=== PATIENT | female | born 1955 | race Caucasian/White ===

== ENCOUNTER 2020-10-28 14:03 | Outpatient (CLI) | payer MEDICARE, MEDICAID, SELFPAY ==
--- NOTE | 2020-10-28 14:11 | MM_ITS ---
WS: [id number] BILATERAL SCREENING DIGITAL MAMMOGRAM WITH CAD HISTORY: SCREENING COMPARISON: 09/21/2016 Bilateral CC and MLO views submitted. Computer aided detection analyzed. Breast composition: There are scattered areas of fibroglandular density. No suspicious masses, microc alcifications or architectural distortion. Benign calcifications RIGHT breast. MM/[place] [id number] IMPRESSION: BI-RADS: 2-Benign FOLLOW UP: 1 Year Follow-up
== END 2020-10-28 14:04 | disposition home or self-care (01) ==
LOC: RADSHAW 14:10
PROVIDERS: PCP Registered Nurse; Visit Provider Registered Nurse
DX: Z12.31 Encounter for screening mammogram for malignant neoplasm of breast (principal)
CPT/HCPCS: 77067

== ENCOUNTER → 2021-10-25 11:09 | Outpatient (BNVA) | payer MEDICARE, MEDICAID, SELFPAY | PROVIDERS: PCP Registered Nurse; Visit Provider Orthopaedic Surgery | DX: S63.501A Unspecified sprain of right wrist, initial encounter (principal); W01.0XXA Fall on same level from slipping, tripping and stumbling without subsequent striking against object, initial encounter; Z46.89 Encounter for fitting and adjustment of other specified devices; S63.591D Other specified sprain of right wrist, subsequent encounter; X58.XXXD Exposure to other specified factors, subsequent encounter | CPT/HCPCS: 73110; 97760; 99202; L3809 ==

== ENCOUNTER 2021-10-25 15:14 | Outpatient (CLI) | payer MEDICARE, MEDICAID, SELFPAY | END 2021-10-25 15:15 | disposition home or self-care (01) | LOC: SPT 15:15 | PROVIDERS: PCP Registered Nurse; Visit Provider Orthopaedic Surgery | DX: Z46.89 Encounter for fitting and adjustment of other specified devices (principal); S63.591D Other specified sprain of right wrist, subsequent encounter; X58.XXXD Exposure to other specified factors, subsequent encounter | CPT/HCPCS: 97760; L3809 ==

== ENCOUNTER 2021-11-24 12:53 | Outpatient (CLI) | payer MEDICARE, MEDICAID, SELFPAY ==
--- NOTE | 2021-11-24 12:59 | MM_ITS ---
WS: [id number] BILATERAL 3D TOMOSYNTHESIS DIGITAL SCREENING MAMMOGRAPHY WITH CAD CLINICAL INFORMATION: SCREENING HISTORY: Screening mammogram. No current complaints. COMPARISON: October 28, 2020 TECHNIQUE: Bilateral CC and MLO views. FINDINGS: Scattered fibroglandular densities bilaterally. Punctate and lucent centered calcifications. No suspi cious focal mass, asymmetry, calcifications, or architectural distortion. No evidence of malignancy. MM/[place] [id number] IMPRESSION: BI-RADS: 2-Benign FOLLOW UP: 1 Year Follow-up Recommend return to annual screening mammography.
== END 2021-11-24 12:54 | disposition home or self-care (01) ==
PROVIDERS: PCP Registered Nurse; Visit Provider Family Medicine
DX: Z12.31 Encounter for screening mammogram for malignant neoplasm of breast (principal)
CPT/HCPCS: 77063; 77067

== ENCOUNTER 2023-03-23 11:54 | Outpatient (CLI) | payer MEDICARE, MEDICAID, SELFPAY ==
--- NOTE | 2023-03-23 11:58 | MM_ITS ---
WS: [id number] BILATERAL 3D TOMOSYNTHESIS DIGITAL SCREENING MAMMOGRAPHY WITH CAD CLINICAL INFORMATION: SCREENING HISTORY: Screening mammogram. No current complaints. COMPARISON: 2021 TECHNIQUE: Bilateral CC and MLO views. FINDINGS: Scattered fibroglandular densities bilaterally. No suspicious focal mass, asymmetry, calcifications, or architectural distortion. No evidence of malignancy. Lucent centered calcification RIGHT breast. IMPRESSION: MM/[place] [id number] BI-RADS: 2-Benign FOLLOW UP: 1 Year Follow-up Recommend return to annual screening mammography.
== END 2023-03-23 11:55 | disposition home or self-care (01) ==
PROVIDERS: PCP Registered Nurse; Visit Provider Registered Nurse
DX: Z12.31 Encounter for screening mammogram for malignant neoplasm of breast (principal)
CPT/HCPCS: 77063; 77067

== ENCOUNTER 2023-08-23 17:35 | Emergency (ER) | payer MEDICARE, MEDICAID, SELFPAY ==
[2023-08-23 17:39] VITALS: BP 132/71; PULSE 72; RESP 16; TEMP 36.9; O2SAT 98; BMI 25.8
--- NOTE | 2023-08-23 17:47 | W.ED.GENADLT ---
HPI - General Adult General: Chief complaint: General Medical Stated complaint: knot on head, headache Time Seen by Provider: 08/23/23 17:45 History of Present Illness: 68-year-old female comes in today with injury to the central frontal scalp. Patient reports about 1 week ago she hit her head against a piece of furniture that they were moving. Since then patient had tenderness in her scalp. Today she had worsening pain and a mild headache. Patient appears nontoxic. No focal neural deficits are noted. Patient denies any chronic medical problems except hypothyroidism. Associated symptoms: Reports headache(s) Review of Systems General: Reports: 10 or more systems reviewed and unremarkable except in HPI and below Neuro: Reports: headache(s) PFSH ED PFSH: Social History Smoking and tobacco/nicotine status: never used tobacco/nicotine Physical Exam Const: COMMON NORMALS: alert HENMT: COMMON NORMALS: normocephalic and atraumatic HEAD & SCALP: normocephalic and atraumatic Neck/C-Spine: COMMON NORMALS: full ROM Resp: COMMON NORMALS: normal respiratory effort Cardio: COMMON NORMALS: regular rate RATE: regular rate Back/Pelvis: COMMON NORMALS: thoracic and lumbar spine normal to inspection Extremity: COMMON NORMALS: normal to inspection Neuro: SENSORIUM/ORIENTATION: Yes alert Skin: COMMON NORMALS: turgor normal GENERAL SKIN EXAM: turgor normal Course Vital Signs: Vital signs: Vital Signs Temperature 98.4 F 08/23/23 17:39 Pulse Rate 72 08/23/23 17:39 Respiratory Rate 16 08/23/23 17:39 Blood Pressure 132/71 08/23/23 17:39 Pulse Oximetry 98 08/23/23 17:39 Oxygen Delivery Me thod Room Air, Nasal C annula 08/23/23 17:39 MDM - General Adult Medical Decision Making 68-year-old female comes in today for complaints of headache status post head injury. On exam patient appears nontoxic. Patient does have a small tender area to her anterior frontal scalp. No crepitus or depression is noted. Differential diagnosis includes but not limited to skull fracture, intracranial bleeding, contusion, concussion syndrome. CT of the head was unremarkable. Reviewed exam with patient believe that she most likely has a tender area secondary to a contusion. Patient reported understanding of care plan need for follow-up or return to the ER. Lab Data Radiology Impressions Head CT 08/23/23 17:54 IMPRESSION: No acute intracranial abnormality. All radiology interpretation(s) finalized by discharge Discharge Plan Discharge Patient Disposition: Home Clinical Impression: Head injury Qualifiers: Encounter type: initial encounter Qualified Code(s): S09.90XA - Unspecified injury of head, initial encounter Condition: Stable Prescriptions: No Action levothyroxine 88 mcg capsule 88 mcg PO DAILY (DME) thumb spica splint See Rx Instructions .Route .MEDSUPPLY Qty: 1 0RF Rx Instructions: As directed Discharge Orders: Discharge ED (Routine); Ordered 08/23/23 Ordered By: Eric Steiner Referrals: Karissa Singletary FNP [Primary Care Provider] - Discharge Diet: Usual diet Discharge Activity: Increase activity as tolerated Patient Instructions: Head Injury (ED) Activity Restrictions/Additional Instructions: Home and rest. Use acetaminophen as needed for pain. Use ice packs for further pain relief. Follow-up with primary care for further instruction. Coding Level of Care Code ED Head [employer] for [employer]
--- NOTE | 2023-08-23 17:54 | CTR_ITS ---
PROCEDURE INFORMATION: Exam: CT Head Without Contrast Exam date and time: 08/23/2023 6:00 PM Age: 68 years old Clinical indication: Injury or trauma; Fall; Blunt trauma (contusions or hematomas); Additional info: Head injury x1wk, persistent headache, no prior image TECHNIQUE: Imaging protocol: Computed tomography of the head without contrast. Radiation optimization: All CT scans at this facility use at least one of these dose optimization techniques: automated exposure control; mA and/or kV adjustment per patient size (includes targeted exams where dose is matched to clinical indication); or iterative reconstruction. COMPARISON: No relevant prior studies available. RADIATION DOSE METRICS: Total DLP (mGy-cm): 1158 FINDINGS: Brain: Mild cortical volume loss. Mild hypodensities in supratentorial periventricular and subcortical white matter, consistent with microangiopathy. No intracranial hemorrhage. Cerebral ventricles: No ventriculomegaly. Paranasal sinuses: Mucosal thickening in the left sphenoid sinus. The other sinuses are clear. No air-fluid level. Mastoid air cells: Visualized mastoid air cells are well aerated. Bones/joints: Hyperostosis frontalis. No fracture. Soft tissues: Unremarkable. Vasculature: No hyperdense artery. CT/CT head wo con* [id number] IMPRESSION: No acute intracranial abnormality.
--- NOTE | 2023-08-23 18:52 | PC.NURSE ---
pt left before she could be given discharge paperwork.
== END 2023-08-23 18:52 | disposition home or self-care (01) ==
PROVIDERS: Emergency Provider Nurse Practitioner Family; PCP Registered Nurse
DX: S09.90XA Unspecified injury of head, initial encounter (principal); W22.8XXA Striking against or struck by other objects, initial encounter
CPT/HCPCS: 70450; 99284

== ENCOUNTER 2024-03-26 09:54 | Outpatient (CLI) | payer MEDICARE, MEDICAID, SELFPAY ==
--- NOTE | 2024-03-26 09:57 | MM_ITS ---
WS: [id number] SCREENING DIGITAL TOMOSYNTHESIS MAMMOGRAM WITH CAD HISTORY: SCREENING COMPARISON: 03/23/2023, 11/24/2021, 10/28/2020 Bilateral CC and MLO with tomosynthesis views submitted. Synthetic mammography reviewed. Computer aid ed detection analyzed. Breast composition: There are scattered areas of fibroglandular density. No suspicious masses, microc alcifications or architectural distortion. Benign calcification 9:00 RIGHT breast. MM/MM scr BI tomosynthesis [id number] IMPRESSION: BI-RADS: 2 - Benign. FOLLOW UP: 1 Year Follow-up
== END 2024-03-26 09:55 | disposition home or self-care (01) ==
LOC: RAD 09:54
PROVIDERS: PCP Family Medicine; Visit Provider Family Medicine
DX: Z12.31 Encounter for screening mammogram for malignant neoplasm of breast (principal); R92.323 Mammographic fibroglandular density, bilateral breasts; R92.1 Mammographic calcification found on diagnostic imaging of breast
CPT/HCPCS: 77063; 77067

== ENCOUNTER 2024-11-29 15:00 | Emergency (ER) | payer MEDICARE, MEDICAID, SELFPAY ==
[2024-11-29 15:15] VITALS: BP 129/76; PULSE 96; RESP 16; TEMP 36.7; O2SAT 97
[2024-11-29 15:44] LABS: Bilirubin Urine Negative (Negative); Blood Urine Negative (Negative); Glucose Urine UA Negative (Normal); Ketones Urine Trace (Negative); Leukocyte Esterase Urine Trace (Negative); Nitrate Urine Negative (Negative); Protein Urine Negative (Negative); Specific Gravity, Urine 1.011 (1.005-1.030); Urine Appearance Clear (CLEAR); Urine Color Yellow (Yellow)
[2024-11-29 15:48] LABS: Bacteria Urine None Seen /hpf; Hyaline Casts Urine 0-4 /lpf; RBC Urine 0-2 /hpf (0-2); Squamous Epithelial Cell Urine 0-5 /hpf (0-5); WBC Urine 0-5 /hpf (0-5)
[2024-11-29 16:22] LABS: Basophils % 0.8 %; Eosinophils # 0.1 10^3/uL (0.0-0.8); Eosinophils % 1.6 %; Hematocrit 36.1 % (36-47); Lymphocytes # 1.6 10^3/uL (0.8-4.8); Lymphocytes % 31.3 %; Mean Corpuscular HGB Conc 30.5 g/dL (30-55); Mean Corpuscular Volume 88.5 fl (85-98); Mean Platelet Volume 9.9 fL (7.4-10.4); Monocytes # 0.9 10^3/uL (0.2-0.9); Monocytes % 17.3 %; Neutrophils # 2.51 10^3/uL (1.8-7.7); Neutrophils % 48.6 %; Nucleated Red Blood Cells % 0 %; Platelet Count 232 10^3/cmm (157-399); Red Blood Count 4.08 10^6/uL (3.85-5.65); Red Cell Distribution Width 14.3 % (12.1-15.1); White Blood Count 5.15 10^3/uL (3.29-11.43)
[2024-11-29 16:45] LABS: Alanine Aminotransferase 26 U/L (0-33); Albumin Level 3.1 g/dL (3.5-5.2); Alkaline Phosphatase 322 U/L (35-105); Anion Gap 14.4 (5-19); Aspartate Amino Transferase 39 U/L (0-32); Blood Urea Nitrogen 13 mg/dL (8-23); Carbon Dioxide 25 mmol/L (22-29); Chloride 97 mmol/L (98-107); Creatinine Clr Calc Pharmacy 55.3125; Globulin 3.4 g/dL (1.3-4.6); Glucose 90 mg/dL (65-115); Osmolality Calculated 274 mOsm/kg (285-295); Potassium 4.4 mmol/L (3.5-5.1); Sodium 132 mmol/L (136-145); Total Bilirubin 0.4 mg/dL (0.15-1.2); Total Protein 6.5 g/dL (6.6-8.7)
--- NOTE | 2024-11-29 17:07 | ED_ITS ---
HPI - Weakness 2 General: Chief complaint: Weakness Stated complaint: pressure in vaginal area Time Seen by Provider: 11/29/24 15:45 History of Present Illness: This patient is a 69-year-old white female who presents to the emergency department stating that she was diagnosed with a urinary tract infection at one of the [facility] earlier this week. She states she had a high fever Sunday night with rigors. She was evaluated the next day diagnosed with urinary tract infection and placed on ciprofloxacin. She states over the past couple of days she has been quite fatigued and sleepy. She states she feels warm but has checked her temperature and it has been normal. Past medical history includes hypothyroidism and [id number] diabetes. Review of Systems 2 General: Reports: 10 or more systems reviewed and unremarkable except in HPI and below Const: Reports: fatigue PFSH ED 2 PFSH: Social History Smoking and tobacco/nicotine status: never used tobacco/nicotine Physical Exam 2 Const: COMMON NORMALS: no acute distress, patient oriented x3 and no limitations GENERAL APPEARANCE: cooperative and comfortable HENMT: COMMON NORMALS: normocephalic, atraumatic, Normal nasal mucous membranes and turbinates present, moist oral mucous membranes and oropharynx normal HEAD & SCALP: normal to inspection, normocephalic and atraumatic F RENE & SINUS: normal facial exam NOSE: Normal nasal mucous membranes and turbinates present Eye: COMMON NORMALS: Equal, round and reactive pupils present, EOMs intact bilaterally and conjunctivae normal GENERAL EYE: appearance normal, both eyes and all related structures CONJUNCTIVA: Yes conjunctivae normal PUPIL: Yes Equal, round and reactive pupils present Neck/C-Spine: COMMON NORMALS: supple and no JVD Chest: COMMONS NORMALS: normal inspection of the chest Resp: COMMON NORMALS: normal respiratory effort and clear to auscultation bilaterally AUSCULTATION: clear to auscultation bilaterally Cardio: COMMON NORMALS: no JVD, regular rate, regular rhythm, No gallops present (Cardio), No murmurs present (Cardio) and No rub (Cardio) RATE: r egular rate RHYTHM: regular rhythm GI: COMMON NORMALS: Normal to inspection, nondistended, normoactive bowel sounds present, Soft to palpation and non-tender AUSCULTATION: Yes normoactive bowel sounds PALPATION: Yes Soft to palpation : COMMON NORMALS: Yes no CVA tenderness BLADDER/KIDNEY EXAM: Yes no CVA tenderness Back/Pelvis: COMMON NORMALS: no CVA tenderness and thoracic and lumbar spine normal to inspection Extremity: COMMON NORMALS: normal to inspection Neuro: COMMON NORMALS: patient oriented x3 and CN's II-XII intact bilaterally Psych: COMMON NORMALS: mental status grossly normal, Normal thought process present and cooperative THOUGHT PROCESS: Normal thought process present Skin: COMMON NORMALS: no rashes or lesions noted, turgor normal and no jaundice GENERAL SKIN EXAM: no rashes or lesions noted and turgor normal Course 2 Vital Signs: Vital signs: Vital Signs Temperature 98.1 F 11/29/24 15:15 Pulse Rate 96 11/29/24 15:15 Respiratory Rate 16 11/29/24 15:15 Blood Pressure 129/76 11/29/24 15:15 Pulse Oximetry 97 11/29/24 15:15 MDM - Weakness Medical Decision Making CBC was normal. CMP was normal except for slightly elevated alk phos of 322. I recommended patient finish her course of ciprofloxacin as previously prescribed. Push fluids and get some rest. She should be feeling better by next week. Recommended follow-up with primary care physician for recheck next week if not back to normal. She was discharged in stable condition. Lab Data 11/29/24 16:16 11/29/24 16:16 Laboratory Results WBC 5.15 10^3/uL (3.29-11.43) 11/29/24 16:16 RBC 4.08 10^6/uL (3.85-5.65) 11/29/24 16:16 Hgb 11.00 g/dL (11.27-16.99) L 11/29/24 16:16 Hct 36.1 % (36-47) 11/29/24 16:16 MCV 88.5 fl (85-98) 11/29/24 16:16 MCH 27.0 pg (27-33) 11/29/24 16:16 MCHC 30.5 g/dL (30-55) 11/29/24 16:16 RDW 14.3 % (12.1-15.1) 11/29/24 16:16 Plt Count 232 10^3/cmm (157-399) 11/29/24 16:16 MPV 9.9 fL (7.4-10.4) 11/29/24 16:16 Neut % (Auto) 48.6 % 11/29/24 16:16 Lymph % (Auto) 31.3 % 11/29/24 16:16 Beaver % (Auto) 17.3 % 11/29/24 16:16 Eos % (Auto) 1.6 % 11/29/24 16:16 Baso % (Auto) 0.8 % 11/29/24 16:16 Neut # (Auto) 2.51 10^3/uL (1.8-7.7) 11/29/24 16:16 Lymph # (Auto) 1.6 10^3/uL (0.8-4.8) 11/29/24 16:16 [place]aver # (Auto) 0.9 10^3/uL (0.2-0.9) 11/29/24 16:16 Eos # (Auto) 0.1 10^3/uL (0.0-0.8) 11/29/24 16:16 Baso # (Auto) 0.0 10^3/uL (0.0-0.1) 11/29/24 16:16 Nucleated RBC % (auto) 0 % 11/29/24 16:16 Nucleated RBCs # 0.0 /100WBC 11/29/24 16:16 Sodium 132 mmol/L (136-145) L 11/29/24 16:16 Potassium 4.4 mmol/L (3.5-5.1) 11/29/24 16:16 Chloride 97 mmol/L (98-107) L 11/29/24 16:16 Carbon Dioxide 25 mmol/L (22-29) 11/29/24 16:16 Anion Gap 14.4 (5-19) 11/29/24 16:16 BUN 13 mg/dL (8-23) 11/29/24 16:16 Creatinine 1.0 mg/dL (0.5-0.9) H 11/29/24 16:16 GFR Calculation 55.0 mL/min (90-130) L 11/29/24 16:16 Glucose 90 mg/dL (65-115) 11/29/24 16:16 Calculated Osmolality 274 mOsm/kg (285-295) L 11/29/24 16:16 Calcium 9.0 mg/dL (8.5-10.5) 11/29/24 16:16 Total Bilirubin 0.4 mg/dL (0.15-1.2) 11/29/24 16:16 AST 39 U/L (0-32) H 11/29/24 16:16 ALT 26 U/L (0-33) 11/29/24 16:16 Alkaline Phosphatase 322 U/L (35-105) H 11/29/24 16:16 Total Protein 6.5 g/dL (6.6-8.7) L 11/29/24 16:16 Albumin 3.1 g/dL (3.5-5.2) L 11/29/24 16:16 Globulin 3.4 g/dL (1.3-4.6) 11/29/24 16:16 Urine Color Yellow (Yellow) 11/29/24 15:30 Urine Appearance Clear (CLEAR) 11/29/24 15:30 Urine pH 6.0 (5-7) 11/29/24 15:30 Ur Specific [place] 1.011 (1.005-1.030) 11/29/24 15:30 Urine Protein Negative (Negative) 11/29/24 15:30 Urine Glucose (UA) Negative (Normal) 11/29/24 15:30 Urine Ketones Trace (Negative) 11/29/24 15:30 Urine Blood Negative (Negative) 11/29/24 15:30 Urine Nitrate Negative (Negative) 11/29/24 15:30 Urine Bilirubin Negative (Negative) 11/29/24 15:30 Urine Urobilinogen 1.0 mg/dL (Negative) 11/29/24 15:30 Ur Leukocyte Esterase Trace (Negative) A 11/29/24 15:30 Urine RBC 0-2 /hpf (0-2) 11/29/24 15:30 Urine WBC 0-5 /hpf (0-5) 11/29/24 15:30 Ur Squamous Epith Cells 0-5 /hpf (0-5) 11/29/24 15:30 Amorphous Sediment Not Reportable 11/29/24 15:30 Urine Bacteria None seen /hpf (NONE) 11/29/24 15:30 Hyaline Casts 0-4 /lpf H 11/29/24 15:30 No radiology studies performed this visit Discharge Plan Discharge Patient Disposition: Home Clinical Impression: Fatigue Qualifiers: Fatigue type: other post infection and related fatigue syndromes Qualified Code(s): G93.39 - Other post infection and related fatigue syndromes Condition: Stable Prescriptions: No Action levothyroxine 88 mcg capsule 88 mcg PO DAILY (DME) thumb spica splint See Rx Instructions .Route .MEDSUPPLY Qty: 1 0RF Rx Instructions: As directed Discharge Orders: Discharge ED (Routine); Ordered 11/29/24 Ordered By: Willis Cueto Referrals: Marya Curtis DO [Primary Care Provider, Family Practice] Patient Instructions: Fatigue Activity Restrictions/Additional Instructions: Follow-up with your primary care physician next week for recheck. Push fluids and get some rest. Complete your antibiotic course. Print Language: Arabic Coding Level of Care Code ED [employer] Related Data Home Medications ?Medication ?Instructions ?Recorded ?Confirmed levothyroxine 88 mcg capsule 88 mcg PO DAILY 10/25/21 10/25/21 Previous Rx's ?Medication ?Instructions ?Recorded thumb spica splint #1 ea 10/25/21 Allergies Allergy/AdvReac Type Severity Reaction Status Date / Time isosorbide (From Imdur) Allergy Unknown Verified 11/29/24 15:16 nitroglycerin (From Allergy swelling Verified 10/25/21 11:29 Nitro-Dur)
[2024-11-29 17:15] VITALS: BP 125/80; PULSE 82; O2SAT 94
== END 2024-11-29 17:16 | disposition home or self-care (01) ==
PROVIDERS: Emergency Medicine; Emergency Provider Emergency Medicine; PCP Family Medicine
DX: G93.39 Other post infection and related fatigue syndromes (principal)
CPT/HCPCS: 36415; 80053; 81001; 85025; 99283

== ENCOUNTER 2025-04-16 10:17 | Outpatient (CLI) | payer MEDICARE, MEDICAID, SELFPAY ==
--- NOTE | 2025-04-16 10:20 | MM_ITS ---
WS: [id number] BILATERAL SCREENING DIGITAL TOMOSYNTHESIS MAMMOGRAM WITH CAD HISTORY: SCREENING COMPARISON: 03/26/2024, 03/23/2023 Bilateral CC and MLO views with tomosynthesis and synthetic mammography submitted. Computer aided detection analyzed. Breast composition: There are scattered areas of fibroglandular density. No suspicious masses, microcalcifications or architectural distortion. Benign calcifications in the upper outer quadrant RIGHT breast. MM/MM scr BI tomosynthesis [id number] IMPRESSION: BI-RADS: 2 - Benign. FOLLOW UP: 1 Year Follow-up
== END 2025-04-16 10:18 | disposition home or self-care (01) ==
LOC: MOBLMAM 10:19
PROVIDERS: PCP Family Medicine; Visit Provider Family Medicine
DX: Z12.31 Encounter for screening mammogram for malignant neoplasm of breast (principal); R92.323 Mammographic fibroglandular density, bilateral breasts; R92.1 Mammographic calcification found on diagnostic imaging of breast
CPT/HCPCS: 77063; 77067

== ENCOUNTER 2025-05-01 09:13 | Emergency (ER) | payer MEDICARE, MEDICAID, SELFPAY ==
--- OUTSIDE RECORDS SUMMARY | 2025-05-01 09:19 | XMS_ITS | Clinical Summary ---
Author Organization [facility] Address [address] [place] [address] Care Team Providers Care [employer] Name Role Phone Marya Curtis Primary Care Provider [phone] Allergies Active Allergy Reactions Criticality Noted Date Comments Isosorbide Mononitrate Swelling High 06/03/2019 Arm and leg Nitro Swelling Low 10/14/2021 Medications acetaminophen (TYLENOL) 500 mg tabletIndications :Chronic joint pain TAKE 2 TABLETS BY MOUTH EVERY 6 HOURS NEEDED FOR MILD PAIN OR TEMPERATURE. 120 Tablet 3 08/17/19 23 Active lancetsIndication s:Type 2 diabetes mellitus without complication, without long-term current use of insulin Use daily as needed to check blood sugar level 100 Each 09/27/19 23 Active Blood-Glucose MeterIndications: Type 2 diabetes mellitus without complication, without long-term current use of insulin Use daily as needed to check blood sugar level 1 Each 09/27/19 23 Active blood sugar diagnostic StripIndications: Type 2 diabetes mellitus without complication, without long-term current use of insulin Use daily as needed to check blood sugar level 100 Each 09/27/19 23 Active MAGNESIUM ORAL Take 1 Tablet by mouth daily. Active APPLE CIDER VINEGAR ORAL Take 2 Capsules by mouth daily. Active levothyroxine 100 mcg tabletIndications :Hypothyroidism due to acquired atrophy of thyroid Take 1 Tablet (100 mcg) by mouth daily in the morning. 90 Tablet 4 06/12/20 24 Active metFORMIN (GLUCOPHAGE) 500 mg tabletIndications :Type 2 diabetes mellitus without complications TAKE ONE TABLET BY MOUTH TWICE DAILY with meals. 200 Tablet 3 09/17/19 25 Active ondansetron (ZOFRAN ODT) 4 mg Tablet, Rapid DissolveIndicatio ns:Nausea Take 1 Tablet (4 mg) by mouth every 8 hours as needed for Nausea/Emesi s. Dissolve tablet on top of tongue, then swallow with saliva. 30 Tablet 10/28/19 25 Active omeprazole (PriLOSEC) 20 mg Capsule, Delayed Release(E.C.)Maribel cations:Melena TAKE ONE CAPSULE BY MOUTH DAILY. 100 Capsule 1 12/09/19 25 Active famotidine (PEPCID) 20 mg tabletIndications :Peptic ulcer TAKE ONE TABLET BY MOUTH TWICE DAILY. 180 Tablet 2 01/08/20 25 Active HYDROcodone-aceta minophen (NORCO) 7.5-325 mg TabletIndications :Acute left-sided low back pain without sciatica Take 1 Tablet by mouth 1 time daily as needed for Pain, Moderate. Max Daily Amount: 1 Tablet 15 Tablet 01/23/20 25 Active gabapentin (NEURONTIN) 100 mg capsuleIndication s:Neuropathy Take 1 Capsule (100 mg) by mouth daily at bedtime. 30 Capsule 2 01/30/20 25 Active ALPRAZolam (XANAX) 0.5 mg tabletIndications :Generalized anxiety disorder TAKE ONE TABLET BY MOUTH nightly NEEDED FOR ANXIETY. 30 Tablet 2 04/06/20 25 Active ALPRAZolam (XANAX) 0.5 mg tabletIndications :Generalized anxiety disorder Take 1 Tablet (0.5 mg) by mouth nightly as needed for Anxiety. 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 d 06/03/2019 Encounters Date Type Department Care Team Description 04/16/2025 Orders Only [facility] Centralized [facility] CALL TO MAKE APPOINTMENT ONLY [address] [address] Marya Curtis, Visit for screening mammogram 04/07/2025 External Device Data STL ABSTRACTION Provider, Abstract 04/04/2025 [facility] [address] [address] Marya Curtis DO Generalized anxiety disorder 03/18/2025 Transcribe Orders [facility] CALL TO MAKE APPOINTMENT ONLY [address] [place] [phone] Marya Curtis DO Visit for screening mammogram (Primary Dx) 03/17/2025 10:30 AM CDT Clinical Support [facility] [address] [place] [facility] [place] [address] Need for immunization against influenza (Primary Dx) 03/10/2025 External Device Data STL ABSTRACTION Provider, Abstract 03/10/2025 External Device Data STL ABSTRACTION Provider, Abstract 03/10/2025 External Device Data STL ABSTRACTION Provider, Abstract 03/03/2025 External Device Data STL ABSTRACTION Provider, Abstract 02/17/2025 External Device Data STL ABSTRACTION Provider, Abstract 2025 Refill [facility] [address] [place] [address] Marya Curtis DO Generalized anxiety disorder 02/02/2025 Results Follow-Up [facility] [address] [place] [address] September, POC URINALYSIS DIPSTICK AUTOMATED, URINE CULTURE 01/29/2025 11:40 AM CDT Office Visit [facility] [address] [place] [address] September, UTI symptoms (Primary Dx); Leukocytes in urine; Neuropathy from Last 3 Months Immunizations Immunization Administration Dates Next Due INFLUENZA VACCINE HIGH DOSE TRIVALENT SPLIT VIRUS, (65 YR UP), 0.5ML (PF), IM 03/17/2025 Family History Medical History Relation Name Comments Diabetes Brother 1 No Known Problems Brother 2 No Known Problems Brother 3 Diabetes Brother 4 Diabetes Brother 5 Diabetes Brother 6 Diabetes Mother Diabetes Sister 1 Relation Name Status Comments Brother 1 Brother 2 Alive Brother 3 Alive Brother 4 Brother 5 Brother 6 Brother 7 Father Mother Sister 1 Sister 2 Social History Tobacco Use Types Packs/Day Years Used Date Smoking Tobacco: Never Passive Smoke Exposure: Past Smokeless Tobacco: Never Tobacco Cessation:Counseling Given: No Alcohol Use Standard Drinks/Week Comments Never 0 (1 standard drink = 0.6 oz pur e alcohol) Feeling Safe Answer Date Recorded Are you in a relationship wi th someone who hurts you emotionally and/or physically? No 03/22/2024 Comments No Sex and Gender Information Value Date Recorded Sex Assigned at Not on file Legal Sex Female 11:09 AM INVENTORY CONTROL ASSOCIATE Gender Identity Not on file Sexual Orientation Not on file Last Filed Vital Signs Vital Sign Reading Time Taken Comments Blood Pressure 116/70 01/29/2025 11:35 AM CDT Pulse 96 01/29/2025 11:35 AM CDT Temperature 36.5 C (97.7 F) 01/29/2025 11:35 AM CDT Respiratory Rate 18 01/29/2025 11:35 AM CDT Oxygen Saturation 92% 01/29/2025 11:35 AM CDT Inhaled Oxygen Concentration - - Weight 76.2 kg (168 lb) 01/29/2025 11:35 AM CDT Height 170.2 cm (5' 7 ) 01/29/2025 11:35 AM CDT Body Mass Index 26.31 01/29/2025 11:35 AM CDT Plan of Treatment Upcoming Encounters Date Type Department Care Team (Late st Contact Info) Description 06/17/2025 11:00 AM INVENTORY CONTROL ASSOCIATE Office Visit [facility] [address] [place] [phone] Marya Curtis, DO [address] [place] [phone] 07/31/2025 9:00 AM INVENTORY CONTROL ASSOCIATE Office Visit [facility] [address] [place] [address] Davon Sen, [facility] [address] [place] [address] Health Maintenance Due Date Last Done Comments FIT/FOBT Q 1 YEAR (AUTO ORDER) 1973 DTAP/TDAP/TD VACCINES (1 - Tdap) 1974 PNEUMOCOCCAL VACCINE 50+ YEA RS (1 of 2 - PCV) 1974 COLORECTAL CANCER SCREENING (AUTO ORDER) 02/06/2000 COLORECTAL SCREENING 02/06/2000 FIT/FOBT Q 1 year 02/06/2000 Flex Sig/CT Colonography Q 5 years 02/06/2000 ZOSTER VACCINE (1 of 2) 2005 OSTEOPOROSIS SCREENING 02/06/2020 LDL CHOLESTEROL ANNUAL 08/17/2024 4, 11/30/2022, 08/17/2022, Additional history exists DIABETES HBA1C Q 6 MONTHS 03/14/20252024, 09/11/2024, 03/13/2024, Additional history exists DIABETES ANNUAL FOOT EXAM 06/12/2025 06/12/2024, 07/2022 Traditional Medicare (ACO) A nnual Wellness Visit 06/13/2025 06/12/2024, 04/19/2023 DIABETES ANNUAL RETINAL EXAM 09/01/2025 09/01/2024, 12/18/2022 DIABETES: A1C (Auto Order) 09/11/202509/11, 09/11/2024, 03/13/2024, Additional history exists DIABETES MICROALBUMIN ANNUAL SCREEN 11/26/2025 11/26/2024, 03/13/2024, 11/30/2022 BREAST CANCER SCREENING 04/16/2026 04/16/20 25, 03/26/2024, 03/26/2024, Additional history exists Colorectal Cancer Screening 04/15/2027 FIT-DNA Q 3 years 04/15/2027 04/15/2024 FIT/ DNA Q 3 YEARS (AUTO ORDER) 04/15/2027 4, 04/15/2024 Colorectal Cancer Screening (AUTO ORDER) 04/15/2029 FLEX SIG/CT COLONOGRAPHY Q 5 YEARS (AUTO ORDER) 04/15/2029 04/15/2024, 04/15/2024 RSV VACCINE (60+ or ) (1 - 1-dose 75+ series) 2030 INFLUENZA VACCINE Completed 03/17/2025, , 10/20/2020 Procedures Procedure Name Priority Date/Time Associated Diagnosis Comments MAMMO 3D ROBERT SCREEN BILAT W OR WO CAD Routine 04/16/2025 Visit for screening mammogram POC URINALYSIS DIPSTICK AUTOMATED Routine 01/29/2025 12:04 PM CDT UTI symptoms URINE CULTURE Routine 01/29/2025 11:57 AM CDT UTI symptoms MICROALBUMIN/CREATI NINE RATIO, RANDOM UR Routine 11/26/2024 1:40 PM CDT Type 2 diabetes mellitus without complication, without long-term current use of insulin ([facility]) HEMOGLOBIN A1C Routine 09/11/2024 10:46 AM CDT Type 2 diabetes mellitus without complication, without long-term current use of insulin ([facility]) COLON CANCER SCREEN, STOOL DNA Routine 04/15/2024 1:40 PM CDT Encounter for colorectal cancer screening LIPID PANEL Routine 08/17/2023 11:45 AM INVENTORY CONTROL ASSOCIATE Type 2 diabetes mellitus without complication, without long-term current use of insulin ([facility]) Hypothyroidism due to acquired atrophy of thyroid Mixed hyperlipidemia HM DIABETES EYE EXAM Routine 12/18/2022 12:48 PM CDT from Last 3 Months or Most Recently Relevant to Health Maintenance Results * MAMMO 3D ROBERT SCREEN BILAT W OR WO CAD (04/16/2025) Anatomical Region Laterality Modality Breast Bilateral Mammography us Marya Curtis DO MAMMO ORDERABLES Final Resu lt * (ABNORMAL) POC URINALYSIS DIPSTICK AUTOMATED (01/29/2025 12:04 PM CDT) COLOR UA POC Yellow Pale to Dark Yellow [facility] CLARITY UA POC Clear Clear, Other [facility] GLUCOSE UA POC Negative Negative, Normal [facility] BILIRUBIN UA POC 1+(A) Negative [facility] KETONES UA POC 1+(A) Negative [facility] SPECIFIC GRAVITY UA POC 1.025 1.000 - 1.030 [facility] BLOOD UA POC Negative Negative [facility]IC [facility] PH UA POC 5.0 5.0 - 8.0 [facility] IC [facility] PROTEIN UA POC 1+(A) Negative [facility] UROBILINOGEN UA POC 0.2 <2.0 mg/dL [facility] NITRITE UA POC Negative Negative [facility] LEUKOCYTE ESTERASE UA POC 1+(A) Negative [facility] KIT LOT NUMBER POC [phone] [facility] KIT EXP DATE POC [id number] [facility] Urine 01/29/2025 12:0 4 PM CDT September LAND LEVELER POINT OF CARE TESTING Final Resu lt [facility] CLIA# [id number] [address] [place] [address] * URINE CULTURE (01/29/2025 11:57 AM CDT) URINE CULTURE SEE NOTE [email or web address] Comment: CULTURE, URINE, ROUTINE Micro Number: [id number] Test Status: Final Specimen Source: Urine, clean catch Specimen Quality: Adequate Result: Mixed genital reji isolated. These superficial bacteria are not indicative of a urinary tract infection. No further organism identification is warranted on this specimen. If clinically indicated, recollect clean-catch, mid-stream urine and transfer immediately to Urine Culture Transport Tube. Test Performed at: [email or web address] [address] [place] [address] Darien Balbuena MD Urine URINE SPECIMEN OBTAINED BY CLEAN CATCH PROCEDURE / Unknown 01/29/2025 11:57 AM CDT 01/30/2025 3:58 AM CDT Lelo Crenshaw LAND LEVELER MICROBIOLOGY - GENERAL ORDERABLE S Final Result Performing Organization Address [facility] de Phone Number [facility] [phone] [email or web address] [address] [facility] [place] [address] * (ABNORMAL) MICROALBUMIN/CREATININE RATIO, RANDOM UR (11/26/2024 1:40 PM CDT) CREATININE, URINE 140 20 - 275 mg/dL [facility] ALBUMIN, URINE 10.3 See Note: mg/dL [facility] Comment: Reference Range: Reference Range Not established ALB/CREAT RATIO, URINE 74(H) <30 mg/g creat [facility] Comment: The ADA defines abnormalities in albumin excretion as follows: Albuminuria Category Result (mg/g creatinine) Normal to Mildly increased <30 Moderately increased 30-299 Severely increased > OR = 300 The ADA recommends that at least two of three specimens collected within a 3-6 month period be abnormal before considering a patient to be within a diagnostic category. Test Performed at: [facility] [address] [place] [address] Darien Balbuena MD Urine URINE SPECIMEN OBTAINED BY CLEAN CATCH PROCEDURE / Unknown 11/26/2024 1:40 PM CDT 11/27/2024 3:30 AM CDT Harmony De La Paz [facility] URINE ORDERABLES Final R esult Performing Organization Address City/[facility] Co de Phone Number [facility] [phone] [email or web address] [address] [place] [address] * (ABNORMAL) HEMOGLOBIN A1C (09/11/2024 10:46 AM CDT) HEMOGLOBIN A1C 7.0(H) <5.7 % of total Hgb [facility] Comment: For someone without known diabetes, a hemoglobin A1c value of 6.5% or greater indicates that they may have diabetes and this should be confirmed with a follow-up test. For someone with known diabetes, a value <7% indicates that their diabetes is well controlled and a value greater than or equal to 7% indicates suboptimal control. A1c targets should be individualized based on duration of diabetes, age, comorbid conditions, and other considerations. Currently, no consensus exists regarding use of hemoglobin A1c for diagnosis of diabetes for children. ESTIMATED AVERAGE GLUCOSE (MG/DL) 154 mg/dL [facility] ESTIMATED AVERAGE GLUCOSE (MMOL/L) 8.5 mmol/L [facility] Comment: FASTING:UNKNOWN FASTING: UNKNOWN Test Performed at: [facility] [address] [facility] [place] [address] Darien Balbuena MD Blood 09/11/2024 10:4 6 AM CDT 09/11/2024 10:47 AM CDT September Crenshaw [facility] CHEMISTRY ORDERABLES Final Resul t [facility] [phone] [facility] [address] [facility] [place] [address] * COLON CANCER SCREEN, STOOL DNA (04/15/2024 1:40 PM CDT) COLOGUARD RESULT Negative Negative [facility] Comment: NEGATIVE TEST RESULT. A negative Cologuard result indicates a low likelihood that a colorectal cancer (CRC) or advanced adenoma (adenomatous polyps with more advanced pre-malignant features) is present. The chance that a person with a negative Cologuard test has a colorectal cancer is less than 1 in 1500 (negative predictive value >99.9%) or has an advanced adenoma is less than 5.3% (negative predictive value 94.7%). These data are based on a prospective cross-sectional study of 10,000 individuals at average risk for colorectal cancer who were screened with both Cologuard and colonoscopy. (Lizabeth De La O al, N Engl J Med 2014;370(14):2085-8477) The normal value (reference range) for this assay is negative. COLOGUARD RE-SCREENING RECOMMENDATION: Periodic colorectal cancer screening is an important part of preventive healthcare for asymptomatic individuals at average risk for colorectal cancer. Following a negative Cologuard result, the [place] Cancer Society and U.S. Multi-Society Task Force screening guidelines recommend a Cologuard re-screening interval of 3 years. References: [place] Cancer Society Guideline for Colorectal Cancer Screening: https://www.cancer.org/cancer/saqkc-cpupez-bhhqsx/nfnswqgjs-rmmfglvyw-nhtaebd/ac s-rec ommendations.html.; Mario DK, Ritesh CR, Junie GreyK, Colorectal Cancer Screening: Recommendations for Physicians and Patients from the U.S. Multi-Society Task Force on Colorectal Cancer Screening , Am J Gastroenterology 2017; 112:5554-0234. TEST DESCRIPTION: Composite algorithmic analysis of stool DNA-biomarkers with hemoglobin immunoassay. Quantitative values of individual biomarkers are not reportable and are not associated with individual biomarker result reference ranges. Cologuard is intended for colorectal cancer screening of adults of either sex, 45 years or older, who are at average-risk for colorectal cancer (CRC). Cologuard has been approved for use by the U.S. FDA. The performance of Cologuard was established in a cross sectional study of average-risk adults aged 50-84. Cologuard performance in patients ages 45 to 49 years was estimated by sub-group analysis of near-age groups. Colonoscopies performed for a positive result may find as the most clinically significant lesion: colorectal cancer [4.0%], advanced adenoma (including sessile serrated polyps greater than or equal to 1cm diameter) [20%] or non- advanced adenoma [31%]; or no colorectal neoplasia [45%]. These estimates are derived from a prospective cross-sectional screening study of 10,000 individuals at average risk for colorectal cancer who were screened with both Cologuard and colonoscopy. (Lizabeth De La O al, N Engl J Med 2014;370(14):6400-1580.) Cologuard may produce a false negative or false positive result (no colorectal cancer or precancerous polyp present at colonoscopy follow up). A negative Cologuard test result does not guarantee the absence of CRC or advanced adenoma (pre-cancer). The current Cologuard screening interval is every 3 years. ([place] Cancer Society and U.S. Multi-Society Task Force). Cologuard performance data in a 10,000 patient pivotal study using colonoscopy as the reference method can be accessed at the following location: www.[employer]ud[employer] [address]/results. Additional description of the Cologuard test process, warnings and precautions can be found at www.[employer]rd.com. Stool STOOL SPECIMEN / Unknown 04/15/2024 1:40 PM CDT 04/16/2024 4:13 PM CDT September Crenshaw LAND LEVELER BODY FLUIDS AND STOOLS Final Res ult [email or web address] CLIA # [id number] [address] , [address] [place] [address] * LIPID PANEL (08/17/2023 11:45 AM INVENTORY CONTROL ASSOCIATE) CHOLESTEROL 180 <200 mg/dL [facility] HDL 77 > OR = 50 mg/dL [facility] TRIGLYCERIDE 116 <150 mg/dL [facility] LDL CALCULATED 82 mg/dL (calc) [facility] Comment: Reference range: <100 Desirable range <100 mg/dL for primary prevention; <70 mg/dL for patients with CHD or diabetic patients with > or = 2 CHD risk factors. LDL-C is now calculated using the Jameson-Acosta calculation, which is a validated novel method providing better accuracy than the Friedewald equation in the estimation of LDL-C. Jameson SS et al. ANDERSON. 2013;310(19): 8549-9568 (http://education.[employer]/faq/KWN354) CHOL/HDL RATIO 2.3 <5.0 (calc) [facility] TOTAL NON-HDL CHOL(LDL+VLDL) 103 <130 mg/dL (calc) [facility] Comment: For patients with diabetes plus 1 major ASCVD risk factor, treating to a non-HDL-C goal of <100 mg/dL (LDL-C of <70 mg/dL) is considered a therapeutic option. Test Performed at: [facility] [address] [place] [address] Darien Balbuena MD Blood 08/17/2023 11:4 5 AM INVENTORY CONTROL ASSOCIATE 08/18/2023 4:12 AM INVENTORY CONTROL ASSOCIATE us Marya Curtis DO CHEMISTRY ORDERABLES Final Result [facility] [phone] [facility] [address] [place] [address] * DIABETES EYE EXAM (12/18/2022 12:48 PM CDT) us Abstract Provider HEALTH MAINTENANCE Final Resul t from Last 3 Months or Most Recently Relevant to Health Maintenance Insurance MEDICARE PART A AND B MEDICAID [place] Care Teams Public [employer] Teacher Relationship Specialty Start Date End Date Marya Curtis DO [address] [place] [address] PCP - General Family Practice 01/12/21
--- OUTSIDE RECORDS SUMMARY | 2025-05-01 09:19 | XMS_ITS | Clinical Summary ---
Author Organization [facility] Address [address] [place] [address] Care Team Providers Care Pulp Press Tender Name Role Phone Unavailable Primary Care Provider Unavailabl e Allergies Active Allergy Reactions Criticality Noted Date Comments Isosorbide Mononitrate Swelling High 06/03/2019 Arm and leg Medications ALPRAZolam (XANAX) 0.25 mg tabletIndications: Generalized anxiety disorder Take 1 Tablet (0.25 mg) by mouth 3 times daily as needed for Anxiety. [facility] 90 Tablet 1 1 Active naproxen (NAPROSYN) 500 mg tablet Take 1 Tablet (500 mg) by mouth 2 times daily with meals. Do not take at the same time as ibuprofen 180 Tablet 6 1 Active Potassium 99 mg Tablet Take by mouth. OTC Active CALCIUM-MAGNESIUM- ZINC ORAL Take by mouth daily. Active ibuprofen (MOTRIN) 800 mg tabletIndications: Primary osteoarthritis involving multiple joints TAKE 1 TABLET(800 MG) BY MOUTH THREE TIMES DAILY NEEDED FOR MILD PAIN 90 Tablet 2 1 Active LEVOTHYROXINE 100 mcg tabletIndications: Hypothyroidism due to acquired atrophy of thyroid TAKE 1 TABLET BY MOUTH EVERY MORNING 90 Tablet 1 Active Active Problems Problem Noted Date Diagnosed Date Anxiety 08/02/2020 Hypothyroidism due to acquired atrophy of thyroi d 06/03/2019 Family History Medical History Relation Name Comments No Known Problems Brother 1 No Known Problems Brother 2 Diabetes Brother 3 Diabetes Brother 4 Diabetes Brother 5 Diabetes Brother 6 Diabetes Mother Diabetes Sister 2 Relation Name Status Comments Brother 1 Alive Brother 2 Alive Brother 3 Brother 4 Brother 5 Brother 6 Brother 7 Father Mother Sister 1 Sister 2 Social History Tobacco Use Types Packs/Day Years Used Date Smoking Tobacco: Former Cigarettes Smokeless Tobacco: Never Tobacco Cessation:Counseling Given: Yes Alcohol Use Standard Drinks/Week Comments Never 0 (1 standard drink = 0.6 oz pur e alcohol) Comments No Sex and Gender Information Value Date Recorded Sex Assigned at Not on file Legal Sex 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 Gender Identity Not on file Sexual Orientation Not on file Last Filed Vital Signs Vital Sign Reading Time Taken Comments Blood Pressure 130/76 10/20/2020 1:52 PM CDT Pulse 82 10/20/2020 1:52 PM CDT Temperature 36.6 C (97.9 F) 10/20/2020 1:52 PM CDT Respiratory Rate 14 10/26/2020 10:18 AM CDT Oxygen Saturation 98% 10/20/2020 1:52 PM CDT Inhaled Oxygen Concentration - - Weight 84.4 kg (186 lb) 10/26/2020 10:18 AM CDT Height 170.2 cm (5' 7 ) 10/26/2020 10:18 AM CDT Body Mass Index 29.13 10/26/2020 10:18 AM CDT Plan of Treatment Health Maintenance Due Date Last Done Comments Pre-Diabetes and Diabetes Screening 1955 DTAP/TDAP/TD VACCINES (1 - Tdap) 1974 COLORECTAL SCREENING 02/06/2000 Colorectal Cancer Screening 02/06/2000 FIT-DNA Q 3 years 02/06/2000 FIT/FOBT Q 1 year 02/06/2000 Flex Sig/CT Colonography Q 5 years 02/06/2000 PNEUMOCOCCAL VACCINE 50+ YEARS (1 of 1 - PCV) 02/06/20 05 ZOSTER VACCINE (1 of 2) 2005 OSTEOPOROSIS SCREENING 02/06/2020 BREAST CANCER SCREENING 10/28/2021 10/28/2020 INFLUENZA VACCINE (#1) 2025 10/20/2020 RSV VACCINE (60+ or ) (1 - 1-dose 75+ series) 2030 Procedures Procedure Name Priority Date/Time Associated Diagnosis Comments MAMMO SCREEN BILAT W OR WO CAD Routine 10/28/2020 Breast cancer screening by mammogram from Last 3 Months or Most Recently Relevant to Health Maintenance Results * MAMMO SCREEN BILAT W OR WO CAD (10/28/2020) Anatomical Region Laterality Modality Breast Bilateral Mammography us Karissa J Singletary FACTORY ASSEMBLER MAMMO ORDERABLES Final Result from Last 3 Months or Most Recently Relevant to Health Maintenance Insurance MEDICAID [place] MEDICARE PART A AND B
--- OUTSIDE RECORDS SUMMARY | 2025-05-01 09:19 | XMS_ITS | Encounter Summary ---
[facility] Organization [facility] Address [address] [place] [address] Care Team Providers Care Mandrel Puller Name Role Phone Unavailable Primary Care Provider Unavailabl e Encounter Details Date Type Department Care Team (Latest Contact Info) Description 10/02/2002 [facility] [address] [place] [address] Kavita Ortega NO ADDRESS ON FILE SCREENING MAL NEOP-CERVIX (Primary Dx) Social History Tobacco Use Types Packs/Day Years Used Date Smoking Tobacco: Never Assessed Comments Unknown Sex and Gender Information Value Date Recorded Sex Assigned at Not on file Legal Sex Female 6:28 AM SILK SCREEN REPAIRER Gender Identity Not on file Sexual Orientation Not on file documented as of this encounter Plan of Treatment Not on file documented as of this encounter Visit Diagnoses Diagnosis Screening for malignant neoplasm of the cervix- Primary documented in this encounter
--- NOTE | 2025-05-01 09:24 | XR_ITS ---
WS: [id number] Exam: XR shoulder RT min 2V* [id number] Date/Time of Exam: 05/01/2025 9:45 AM Reason For Exam: pain DLP: No acute fracture. Degenerative change at the AC joint and glenohumeral joint. Normal soft tissues. Osteopenia. XR/XR shoulder RT min 2V* [id number] IMPRESSION: 1. Moderate degenerative change and osteopenia.
--- NOTE | 2025-05-01 09:32 | ED_ITS ---
HPI - General Adult General: Chief complaint: Extremity Injury, Upper Stated complaint: RT shoulder pain Time Seen by Provider: 05/01/25 09:32 History of Present Illness: 70-year-old female presents emergency ro om complaint of right shoulder pain has been going on for 6 months is not recall any specific trauma or injury. She did not previously had surgery to the shoulder. She notes she has difficult time with extension and abduction and she cannot raise it above the level of her head. No precipitating event no trauma. Associated symptoms: Deny chest pain or dyspnea Related Data Home Medications ?Medication ?Instructions ?Recorded ?Confirmed levothyroxine 88 mcg capsule 88 mcg PO DAILY 10/25/21 10/25/21 Previous Rx's ?Medication ?Instructions ?Recorded thumb spica splint #1 ea 10/25/21 diclofenac sodium 75 mg 75 mg PO Q12H PRN pain #20 t abs 05/01/25 tablet,delayed release Allergies Allergy/AdvReac Type Severity Reaction Status Date / Time isosorbide (From Imdur) Allergy Unknown Verified 11/29/24 15:16 nitroglycerin (From Allergy swelling Verified 10/25/21 11:29 Nitro-Dur) Review of Systems Const: Denies: fever(s) or chills Card: Denies: chest pain Resp: Denies: dyspnea Musc: Reports: joint pain; Denies: neck pain or back pain PFSH ED PFSH: Social History Smoking and tobacco/nicotine status: never used tobacco/nicotine Physical Exam Const: COMMON NORMALS: no acute distress GENERAL APPEARANCE: cooperative and comfortable ORIENTATION/CONSCIOUSNESS: Yes awake, Yes oriented to person, Yes oriented to place and Yes oriented to time HENMT: COMMON NORMALS: normocephalic, atraumatic and hearing grossly normal bilaterally HEAD & SCALP: normocephalic and atraumatic Resp: COMMON NORMALS: normal respiratory effort, No retractions, No use of accessory muscles and clear to auscultation bilaterally AUSCULTATION: clear to auscultation bilaterally Cardio: COMMON NORMALS: regular rate, regular rhythm and No murmurs present (Cardio) RATE: regular rate RHYTHM: regular rhythm Extremity: OTHER: Significant loss of range of motion she can only AB duct to about 25 to 30 degrees. Difficult to test for impingement. External rotation to about 30 degrees flexion to approximately 45 degrees Neuro: SENSORIUM/ORIENTATION: Yes oriented to person, Yes oriented to place and Yes oriented to time Skin: COMMON NORMALS: no rashes or lesions noted GENERAL SKIN EXAM: no rashes or lesions noted Course Vital Signs: Vital signs: Vital Signs Temperature 98.0 F 05/01/25 09:33 Pulse Rate 74 05/01/25 10:10 Respiratory Rate 14 05/01/25 10:10 Blood Pressure 112/72 05/01/25 10:10 Pulse Oximetry 93 05/01/25 10:10 Oxygen Delivery Me thod Room Air 05/01/25 09:33 MDM - General Adult Medical Decision Making Patient seen initially evaluated concern for rotator cuff arthropathy frozen shoulder or fracture. X-ray no acute fracture or arthritic changes. Will refer to orthopedics start anti-inflammatories Lab Data Radiology Impressions Shoulder X-Ray 05/01/25 09:24 IMPRESSION: 1. Moderate degenerative change and osteopenia. All radiology interpretation(s) finalized by discharge ED provider radiology interpretation(s): Shoulder with arthritic changes no acute fractures of distal clavicle or shoulder no AC joint separation no subluxation. Other osseous structures and lung leija partially visualized no acute abnormalities Discharge Plan Discharge Patient Disposition: Home Clinical Impression: Frozen shoulder syndrome, Rotator cuff arthropathy Condition: Stable Prescriptions: New diclofenac sodium 75 mg tablet,delayed release (DR/EC) 75 mg PO Q12H PRN (Reason: pain) Qty: 20 0RF No Action levothyroxine 88 mcg capsule 88 mcg PO DAILY (DME) thumb spica splint See Rx Instructions .Route .MEDSUPPLY Qty: 1 0RF Rx Instructions: As directed Discharge Orders: Discharge ED (Routine); Ordered 05/01/25 Ordered By: Ishmael Lombardi Referrals: Marya Curtis DO [Primary Care Provider, Family Practice] Discharge Diet: Usual diet Discharge Activity: Limit activity as instructed Patient Instructions: Opioid Safety, Pain Management, Patient Portal & Errol Instructions Activity Restrictions/Additional Instructions: [facility]. It is very important that you follow up as instructed or that you return to the Emergency Department should you have concerns or if your condition changes or worsens in any way. Emergency department visits are focused on emergent conditions, in some cases you may require further evaluation on an outpatient basis. You were seen in the emergency room with complaints of shoulder pain for the last several months. X-ray does not show any acute fractures there is signs of significant arthritic change. Suspect she may have rotator cuff injury and likely frozen shoulder as well. Will start you on anti-inflammatories and refer you to orthopedics. (Please note that included in your discharge packet is information concerning opioid safety and pain management. This information is given to all patients were discharged from the ER regardless of their discharge diagnosis or the medicines they usually take or are prescribed.) Print Language: Croatian Coding Level of Care Code ED Wellness Coach for Gill Poon
[2025-05-01 09:33] VITALS: BP 134/80; PULSE 73; RESP 18; TEMP 36.7; O2SAT 96; BMI 25.0
[2025-05-01 09:45] VITALS: BP 134/80; PULSE 134; RESP 16; O2SAT 97
[2025-05-01 10:10] VITALS: BP 112/72; PULSE 74; RESP 14; O2SAT 93
--- NOTE | 2025-05-01 10:31 | DCPLANNER ---
messaged ortho for er f/u
== END 2025-05-01 10:15 | disposition home or self-care (01) ==
PROVIDERS: Emergency Provider Family Medicine; PCP Family Medicine
DX: M75.01 Adhesive capsulitis of right shoulder (principal); M12.811 Other specific arthropathies, not elsewhere classified, right shoulder
CPT/HCPCS: 73030; 99283